=== PATIENT | female | born 1975 | race Caucasian/White ===

== ENCOUNTER 2016-03-24 21:24 | Emergency (ER) | payer BC, MEDICARE ==
[2016-03-24 21:41] VITALS: BP 149/98
--- NOTE | 2016-03-24 22:12 | ERNOTE ---
Time Seen by Provider: 03/24/16 22:03 Stated Complaint: COUGH Presenting Symptoms:: cough, runny nose Source: patient Exam Limitations: no limitations Immunizations: IMMUNIZATION HX Immunizations Up to Date No History of Influenza Vaccine No Hx Pneumococcal Vaccination No Allergies/Adverse Reactions: Allergies sulfamethoxazole [From Bactrim] Allergy (Mild, Verified 03/24/16 21:41) Hives trimethoprim [From Bactrim] Allergy (Mild, Verified 03/24/16 21:41) Hives Home Medications: HOME MEDICATIONS Lovastatin [Mevacor] 20 mg PO DAILY 07/12/13 [Last Taken Unknown] Ropinirole HCl 3 mg PO DAILY PRN 07/12/13 [Last Taken Unknown] Tramadol HCl 50 mg PO PRN 07/12/13 [Last Taken Unknown] Lurasidone HCl [Latuda] 40 mg PO DAILY 11/29/14 [Last Taken Unknown] Cyanocobalamin [Vitamin B-12] 1,000 mcg PO DAILY 03/24/16 [Last Taken Unknown] LORazepam [Ativan] 1 mg PO BID 03/24/16 [Last Taken Unknown] Milnacipran HCl [Savella] 100 mg PO BID 03/24/16 [Last Taken Unknown] Multivitamin [One Daily Essential] 1 each PO DAILY 03/24/16 [Last Taken Unknown] Oseltamivir Phosphate [Tamiflu] 75 mg PO BID #9 cap 03/24/16 [Last Taken Unknown ] Pregabalin [Lyrica] 225 mg PO BID 03/24/16 [Last Taken Unknown] - History of Present Ilness Narrative: Pt has had 4 weeks of cough and sore throat that was improving. over the past few days she has had increased cough and chills Timing: getting worse Severity: moderate Modifying Factors - Improves: Reports: other - OTC meds had helped but now the are not Review of Systems - Review of Systems Constitutional: Present: recent illness, chills, fatigue EYE: Present: no symptoms reported ENT: Present: nose congestion, nasal drainage, sore throat Respiratory: Present: See HPI, cough Cardiology: Absent: chest pain Gastrointestinal/Abdominal: Absent: nausea, vomiting Genitourinary: Present: no symptoms reported Musculoskeletal: Present: no symptoms reported Skin: Present: no symptoms reported Neurological: Present: no symptoms reported Endocrine: Present: no symptoms reported Hematologic/Lymphatic: Present: no symptoms reported Psych: Present: no symptoms reported - Patient's Past Medical History Patient History - Medical: Anxiety, Depression, Fibromyalgia Patient History - Cancer: No Hx of Cancer LMP (females 10-50): last week - Social History Living Situations: home Smoking Status: Never smoker Alcohol Use: none Drug Use: none Physical Exam - Physical Exam General Appearance: Present: wd/wn, alert, no apparent distress Eye Exam: Normal inspection: bilateral, PERRL: bilateral, EOMI: bilateral Ears, Nose, Throat: Present: nasal congestion - and erythema. Absent: pharyngeal erythema Neck: Present: normal inspection, nontender Respiratory: Present: no respiratory distress, normal breath sounds, no accessory muscle use, chest nontender, lungs clear Cardiovascular/Chest: Present: regular rate, rhythm, no murmur, normal peripheral pulses Back Exam: Present: normal inspection, normal range of motion Extremity Exam: Present: normal inspection, non-tender, no edema, normal range of motion Neurological Exam: Present: alert, oriented, normal mood/affect, no motor/ sensory deficits Skin Exam: Present: normal color, warm/dry Lymphatic Exam: Present: no adenopathy ED Progress - Results and Orders Patient's Lab Results:: I have reviewed the patient's lab results. Results and Orders: Laboratory Tests 03/24/16 22:26 Influenza Type A Ag Positive H Influenza Type B Ag Negative - Vital Signs Patient's Vital Signs:: I have reviewed the patient's vital signs. Vital Signs: Vital Signs 03/24/16 03/24/16 03/24/16 21:24 21:35 22:02 Temperature 36.7 C Pulse Rate 111 H 111 H Respiratory 18 Rate Blood Pressure 120/76 149/98 O2 Sat by Pulse 100 Oximetry - Progress/Reassessment Chief Complaint: Upper Respiratory Symptoms Departure - Departure Clinical Impression: Influenza Disposition: Home self-care Condition: Good Instructions: Influenza, Adult, [id number] Additional Instructions: avoid contact with any other people for 2 days or until you have no temperature over 100 degrees Prescriptions: Oseltamivir Phosphate [Tamiflu] 75 mg PO BID #9 cap
[2016-03-24] MEDS ORDERED: OSELTAMIVIR PHOSPHATE 75 MG CAPSULE PO ONE ×2 (22:59→23:08)
== END 2016-03-24 23:10 | disposition home or self-care (01) ==
LOC: ER 21:24
DX: J10.1 Influenza due to other identified influenza virus with other respiratory manifestations (principal); F41.9 Anxiety disorder, unspecified; M79.7 Fibromyalgia